=== PATIENT | female | born 1960 | race Caucasian/White ===

== ENCOUNTER 2019-07-31 18:06 | Inpatient (IN) | payer BC, OTHER ==
[~2019-07-31] VITALS: Ht 167.6 cm; Wt 107.4 kg
[2019-07-31 18:13] VITALS: BP 136/84
--- NOTE | 2019-07-31 18:54 | NUR ---
PT. ADMITTED TO [facility] FROM [facility]. SHE ARRIVED ON STRETCHER. SHE WAS BROUGHT HERE FOR PTSD AND DEPRESSION ACCORDING TO THE PATIENT. [facility] STATED SHE WAS SI. SHE STATES SHE HAS BEEN IN SEVERAL MENTAL HEALTH PLACES OVER THE YEARS. SHE SMILED AND LAUGHED THROUGHOUT THE INTERVIEW. SHE STATES SHE IS UNABLE TO STAND AND WOULD REQUIRE A W/C TO GET ARROUND. SHE STATE SHE HAS HAD 3 C-SECTIONS, HER GALLBLADDER REMOVED, AND HER 3 LITTLE FINGERS ON HER RIGHT HAND CUT OFF AND REATTACHED. SHE STATES SHE SMODES 1 PACK A DAY OF CIGARETTES. SHE ALSO STATES SHE WEIGHED 260 LBS AND IN THE LAST 3 MONTHS HAS NOT HAD A GOOD APPETITE AND HAS LOST 30 LBS. SHE CURRENTLY WEIGHS 235.6 LBS. SHE DENIES DRINKING BUT DOES DRINK PINK WINE 1-2 A WEEK. SHE DENIES A FAMILY HISTORY OF ETOH ABUSE, SUBSTANCE ABUSE OR DRUG ABUSE. SHE DENIES DRUG ABUSE ALSO. SHE STATES SHE HAS FALLEN 2 TIMES IN THE PAST WEEK BEFORE COMING IN FOR HELP.
--- NOTE | 2019-07-31 19:18 | NUR ---
Care of patient assumed at 1915. Patient sitting in day room watching TV. Pleasant and cooperative upon approach. States he told people she was hearing voices in order to be admitted, but denies AH at this time. Reports multiple sites of chronic pain, the worst being back and right hip. Denies SI/HI. Patiently waits for HS meds, and asks several times if her protperty has been inventoried yet.
[2019-08-01 09:12] VITALS: BP 136/92
--- NOTE | 2019-08-01 11:09 | NUR ---
Assess due to high nutrition screen risk for unintentional wt loss and poor appetite. Admit to [facility] with SI. Pt reports wt loss past several months of about 30 lb and was quite surprised by this. Admit to not eating, and depressed. Currently appetite is excellent, able to state food preferences and aware of ability to order alternative selections if needed. Does take lasix and spironolactone. Consider low nutrition risk as appetite has returned.
[2019-08-01 14:09] VITALS: BP 126/88
--- NOTE | 2019-08-01 14:43 | NUR ---
Ambulating t/o unit with walker without s/o distress. Hx of falls, Yellow gown in place. Alert and orientated X4. Calm and compliant. Denies SI/HI. Breath sounds clear t/o. Reg HR auscultated. Color pink with brisk capillary refill and palpable peripheral pulses. Independent with voiding. Active bowel sounds over soft, rounded abdomen. Interacting with peers without s/o distress. Compiant with meds.
[2019-08-01 20:46] VITALS: BP 120/75
[2019-08-02 07:30] VITALS: BP 115/76
--- NOTE | 2019-08-02 15:49 | EKG ---
[facility] [place] [facility] [place] [address] ELECTROCARDIOGRAM REPORT Name: DONNIE INTERIANO Room #: 528A-A ADM IN M.R.#: [id number] Admission: 07/31/19 Attend Phys: Neri Feliz DO Discharge: Date of : 60 Report #: [id number] THIS REPORT FOR: cc: DESTINY - No family physician/PCP FAM - No family physician/PCP Gil Graham MD ~ THIS REPORT FOR: //name// [facility] Test Date: 2019-08-02 Test Time: 08:10:07 Pat Name: DONNIE INTERIANO Department: Room: 52 A Gender: F Self Contained Behavior Unit Teacher: Rigo BUNN : 1960 Requested By: Neri Feliz Order Number: [id number] MD: Gil Graham Measurements Intervals Kane Rate: 90 P: 40 VT: 148 QRS: 30 QRSD: 86 T: 49 QT: 400 QTc: 490 Interpretive Statements Sinus rhythm Probable left atrial enlargement Borderline prolonged QT interval No previous ECG available for comparison Electronically Signed On 08-02-2019 15:48:50 CDT by Gil Graham [email or web address] <ELECTRONICALLY SIGNED> By: Gil Graham MD 08/02/19 1548 0810 0810 Gil Graham MD /EPI
[2019-08-02 19:38] VITALS: BP 154/96
--- NOTE | 2019-08-02 20:19 | NUR ---
Late dayshift note: Assued care 0700. C/o RAGLAND and was instructed on pressure point for H.A. relief. She looks out after the other residents-asking others to cover their mouths when coughing, encourages others to sit down with chair alarms. She displays a sad affect, denies SI/HI/AH/VH. Med changes were made and later meds for RAGLAND/pain were added. Has been out of her room a majority of the day.
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
[2019-08-03 08:36] LABS: CREATININE 1.4 mg/dL (0.6-1.0); MAGNESIUM 1.7 mg/dL (1.8-2.4)
--- NOTE | 2019-08-03 09:51 | NUR ---
Assumed care on 08/02/19 @ 19:15, noted to be up in day room sitting in a chair at a table. HRRR, Lungs CTA, ABD N. Reports BM today. Denies SI, HI, Denies anxiety, endorses depression. Compliant with medication, takes whole with water. Ambulates with walker. Independent withtoileting. Yellow fall risk. PRN Trazadone provided @ for sleep. Bed in low position. Slept 10.8 hours overnight....................................L Paula MCCOY
[2019-08-03 10:15] VITALS: BP 144/94
--- NOTE | 2019-08-03 13:02 | NUR ---
Alert and orientated X4. States she feels "shaky" this AM and thinks it may be r/t anxiety. Denies SI/HI. Denies pain at this time. AC done--95. Breath sounds clear. Irregular HR auscultated. Color pink with brisk capillary refill and palpable peripheral pulses. BP 144/94. Independent with voiding. Active bowel sounds over large, soft rounded abdomen. States she has not had BM in several days. Dr. Valente notified of above issues. Labs drawn on 2nd attempt per L AC. 12 lead EKG done, Dr. Valente aware of results. Shakiness resolved before breakfast, spent remainder of day in dayroom conversing with peers and staff. Ambulating without diff with walker, regular, steady gait.
--- NOTE | 2019-08-03 13:51 | NUR ---
JANICE reviewed documents dropped off by the police department regarding pt and her frequent calls to [employer] officers. SW team will continue to follow pt during her stay on this unit.
[2019-08-03 14:40] VITALS: BP 115/77
[2019-08-03 19:55] VITALS: BP 141/82
--- NOTE | 2019-08-04 05:15 | NUR ---
ASSESSMENT: PT REMAIN ALERT AND ORIENT TIMES THREE. DENIES PAIN, SOB AND N/V. DENIED AUDIBLE AND VISUAL HALLUCINATIONS. QUIET WHILE SITTING IN THE DAY ROOM AT THE BEGINNING OF THE SHIFT. VERY COOPERATIVE AND CALM. VSS, AFEBRILE. NO PRN'S GIVEN. WILL CONTINUE TO MONITOR.,
--- NOTE | 2019-08-04 07:47 | EKG ---
[facility] [place] [address] ELECTROCARDIOGRAM REPORT Name: DONNIE INTERIANO Room #: 528A-A ADM IN M.R.#: [id number] Admission: 07/31/19 Attend Phys: Neri Feliz DO Discharge: Date of : 60 Report #: [id number] THIS REPORT FOR: cc: DESTINY - No family physician/PCP DESTINY - No family physician/PCP Nikita Jones MD [facility] ~ THIS REPORT FOR: //name// [facility] Test Date: 2019-08-03 Test Time: 09:31:13 Pat Name: DONNIE INTERIANO Department: Room: 52 A Gender: F Lithographic Press Feeder: Krzysztof MEDEL : 1960 Requested By: Osmar Valente Order Number: [id number] MD: Nikita Jones Measurements Intervals Harris Rate: 91 P: 49 NJ: 145 QRS: 32 QRSD: 94 T: 54 QT: 417 QTc: 514 Interpretive Statements Sinus rhythm Prolonged QT interval Compared to ECG 08/02/2019 08:10:07 No significant changes Electronically Signed On 08-04-2019 7:46:57 CDT by Nikita Jones [email or web address] <ELECTRONICALLY SIGNED> By: Nikita Jones MD, [facility] 08/04/19 0746 0 Nikita Jones MD, [facility] /EPI
[2019-08-04 07:56] VITALS: BP 123/79
[2019-08-04 08:20] VITALS: BP 123/79
--- NOTE | 2019-08-04 09:00 | NUR ---
PT FINISHED BREAKFAST THIS AM. PT TOOK MEDS WHOLE, PT STATED SHE DIDN'T WANT THE LASIX MED. ASKED PT IF SHE GETS SWOLLEN LEGS, PT STATED NO. PT DENIES ANY PAIN. PT UP WITH WALKER WITH STEADY GAIT.
[2019-08-04 20:19] VITALS: BP 136/78
--- NOTE | 2019-08-05 00:15 | NUR ---
Care assumed of patient at 1915: Patient sleeping in bed at start of shift. Easily aroused. Patient calm, pleasant and cooperative. Alert and oriented x4. Denies SI/HI/AH/VH. Denies anxiety and depression. Denies pain and discomfort. Patient presents with calm affect. No s/s of delusional or paranoia behaviors observed. Declined HS snack. Took HS medication whole without difficulty. Patient up to the bathroom with walker with supervision. Gait steady, good balance. Patient has been resting quietly thus far this shift.
[2019-08-05 06:30] VITALS: BP 140/93
[2019-08-05 08:21] VITALS: BP 130/62
--- NOTE | 2019-08-05 11:12 | NUR ---
Up ambulating in unit with walker with slow, steady gait. Working on puzzle and interacting with peers. Alert and orientated X4, denies SI/HI. Breath sounds clear t/o. Reg HR auscultated. Color pink with brisk capillary refill and palpable peripheral pulses. Active bowel sounds over soft, rounded abdomen. Independent with voiding.
[2019-08-05 19:59] VITALS: BP 144/100
--- NOTE | 2019-08-05 23:26 | NUR ---
Care assumed of patient at 1915: Patient sleeping in bed at start of shift. Easily aroused. Alert and oriented x4. Initially calm, pleasant and cooperative. Denies depression and anxiety. Denies SI/HI/AH/VH. Goal directed on returning home. No delusional or paranoia behaviors observed. Patient declined HS snack. Took HS medication whole without difficulty. Patient had an episode of incontinence of bladder. Patient frustrated about needing new brief and linens. However, once they were provided, patient irritable that staff asked her to go to the bathroom so she could complete jorge care and her linens could be changed. Patient did state that staff was "not nice". However, staff x3 present, no inappropriate behaviors observed. Patient presented as helpless at times and wanted staff to do what she could do for herself. Patient is sleeping quietly in bed at this time.
[2019-08-06 06:18] VITALS: BP 138/78
[2019-08-06 09:06] VITALS: BP 134/89
[2019-08-06 10:13] LABS: HEMATOCRIT 42.7 % (37.0-47.0); MCH 29.5 pg (26.0-34.0); MCHC 32.7 g/dL (28.0-37.0); MCV 90.1 fL (80.0-100.0); RBC 4.74 mil/uL (4.20-5.00); RDW 14.6 % (10.5-14.5); WBC 9.8 thou/uL (4.0-11.0)
[2019-08-06 10:28] LABS: CALCIUM 10.5 mg/dL (8.5-10.1); CREATININE 1.4 mg/dL (0.6-1.0); MAGNESIUM 2.3 mg/dL (1.8-2.4); POTASSIUM 3.8 mmol/L (3.5-5.1)
[2019-08-06 12:35] VITALS: BP 107/82
[2019-08-06 21:01] VITALS: BP 132/87
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
--- NOTE | 2019-08-07 03:44 | NUR ---
Assumed care on 08/06/19 @ 19:15, seated in the day room at a table. cooperated with assessment and medication administration. HRRR, Lungs CTA, ABD N, reports bm today. Asked for MOM, and then refused it when provided.A&Ox4 Reports Depression and anxiety. Denies HI, SI, Hallucinations. In bed at this writing, will continue to monitor q 12 minutes for patient safety.
[2019-08-07 05:46] VITALS: BP 132/87
[2019-08-07 07:25] VITALS: BP 106/62
--- NOTE | 2019-08-07 12:11 | NUR ---
RT Progress Note- Susan continues to be present in recreational therapy groups. Her mood fluctuates from bright and cheerful to more subdued. This often correlates to the happenings in the milieu as she is easily wrapped up in other patients issues or opinions. Susan denies active hallucinations but at times can be seen pausing her participation in group to sit quietly as if she is focused on something.
[2019-08-07 13:31] VITALS: BP 132/87
--- NOTE | 2019-08-07 13:32 | NUR ---
JANICE received notice from Dr. Feliz that pt's stay is not covered as of 08/03. JANICE and Dr. Feliz talked with pt and asked if she thought she could manage her symptoms at home. Pt said she can and would like to d/c tomorrow at 10a.m. SW and pt contacted Ang VALLADARES. Pt has an appt scheduled for 08/24 @10:[address] Payne. She switched her appt to in person. She believed she had a machine adjuster leader case trim named Lynne as well. JANICE was told by [facility] rep that pt was seen by case management for hospital diversion but that is it. She was given the contact to arrange for pt to have case management of [facility] Gottlieb at [phone]. JANICE contacted Pilar and left a msg. JANICE team will continue to follow pt during her stay on this unit.
--- NOTE | 2019-08-07 18:13 | NUR ---
Assumed patient care at 0715. Vital signs stable. No suicidal and/or homicidal ideation. Mood is pleasant and cooperative. Patient has a "friendly" relationship with a male peer. There has been no noted inappropriate behavior related to this, appears to be part of a delusional aspect of her mental ilness. Patient also talked a little bit about having a " at home." Dress/hygiene is appropriate, she is compliant with all medications tests and treatments. No new medical concerns. Will report to on-coming nurse.
[2019-08-07 21:58] VITALS: BP 130/76
--- NOTE | 2019-08-07 23:29 | NUR ---
Assumed care on 08/07/19 @ 19:15, Seated in the day room at a table. Having converstion with peers. HRRR, Lungs CTA bilat, ABD N x 4Q. Reports large soft BM today. Takes meds whole with water. Ambulates with walker. Independent with toileting. Reports back pain, but says that the Gabapentin that she takes covers the pain better than her PRN Tylenol, so based on that does not wish to take prn Tylenol.
--- NOTE | 2019-08-08 08:36 | NUR ---
Followup: remains on [facility] unit. Eating 100% of meals and wt is stable. Low nutrition risk
[2019-08-08] MEDS ORDERED: LIPITOR40 MG PO (09:19)
[2019-08-08] MEDS ORDERED: PRAZOSIN HCL1 MG PO (09:19)
[2019-08-08] MEDS ORDERED: ISORDIL10 MG PO (09:19)
[2019-08-08] MEDS ORDERED: ALDACTONE50 MG PO (09:20)
[2019-08-08] MEDS ORDERED: ASPIR 8181 MG PO (09:21)
[2019-08-08] MEDS ORDERED: NEURONTIN600 MG PO (09:22)
[2019-08-08] MEDS ORDERED: RISPERDAL2 MG PO (09:23)
[2019-08-08] MEDS ORDERED: LASIX 40 MG TAB40 M2 PO (09:24)
[2019-08-08] MEDS ORDERED: PROTONIX40 M1 PO (09:24)
[2019-08-08] MEDS ORDERED: COLACE 100 MG100 MG PO (09:24)
[2019-08-08] MEDS ORDERED: MAGNESIUM400 MG PO (09:25)
[2019-08-08] MEDS ORDERED: ALLOPURINOL 10100 M2 PO (09:25)
[2019-08-08] MEDS ORDERED: PT HOME MEDICATION MISCELL (09:27)
--- NOTE | 2019-08-08 09:48 | NUR ---
Assumed patient care at 0715. Vital signs stable, LSCTA, BS x's4, abdomen soft and non-tender, skin is clean, warm, dry and intact; she deies pain. Patient uses a walker to ambulate independently. She continues to be compliant with her medications. Patient is alert and oriented x's 4, pleasant and compliant. Several positive peer interations noted. Affect is congruent with behaviors. Patient denies suicidal and/or homicidal ideations. She is to Discharge back home with her this am. Patient verbalizes an understanding of all discharge instructions. No new medical concerns.
[2019-08-08 11:35] VITALS: BP 140/87
--- NOTE | 2019-08-08 11:38 | NUR ---
JANICE D/C NOTE JANICE gave pt a SW handout with her psych appointment info on it. JANICE also faxed pt's d/c docs to [facility]. JANICE called a taxi to have a pt return home. No other needs for JANICE team to address at this time.
--- NOTE | 2019-08-10 16:07 | NUR ---
JANICE contacted pt regarding her insurance denial letter. No answer. JANICE lft msg.
--- NOTE | 2019-08-10 18:27 | D ---
[facility] [place] [address] DISCHARGE SUMMARY Name: DONNIE INTERIANO Room #: 528A-A [facility] IN M.R.#: [id number] Admission: 07/31/19 Attend Phys: Neri Feliz DO Discharge: 08/08/19 Date of : 60 Report #: [id number] THIS REPORT FOR: cc: DESTINY - No family physician/PCP FAM - No family physician/PCP Neri Feliz DO ~ THIS REPORT FOR: //name// CC: Neri DIXON physician/PCP DATE OF SERVICE: 08/08/2019 PSYCHIATRIC DISCHARGE SUMMARY ATTENDING PHYSICIAN: Neri Feliz DO. INSPECTOR RAW QUARTZ: Osmar Valente M.D., at the time of discharge. DISCHARGE DIAGNOSES: Unspecified psychosis, much improved; major depressive disorder, recurrent, severe by history; generalized anxiety disorder, posttraumatic stress disorder was her diagnosis from [facility]. MEDICAL COMORBIDITIES: Include obesity, BMI of 38.2. ADDITIONAL PROBLEMS: Include hypertension, muscle spasms, hyperlipidemia and chronic kidney disease. DISCHARGE PLAN: The patient is discharging to her home. ACTIVITY LEVEL: As tolerated. SOCIAL HISTORY: No alcohol, no illicit drugs. The patient has a psychiatric followup with her community mental health center provider at [facility]; already reviewed the details; according to schedule on 08/24 at 10:[address] Payne. She also has case management with Pilar Gottlieb at [phone]. The patient is encouraged to see her PCP within 1 month. LABORATORY DATA: This admission, on the CBC; H and H 14.0 and 42.7, white count 9.8, platelet count 264. Chemistries this admission; sodium 139, potassium 3.8, chloride 102, bicarbonate 27, anion gap 10, BUN 25, creatinine 1.4, estimated GFR 38, calcium 10.5, magnesium 2.3. DISCHARGE MEDICATIONS: Atorvastatin 40 mg p.o. daily, isosorbide dinitrate [address] [id number] DISCHARGE SUMMARY Name: DONNIE INTERIANO Room #: 52-A [facility] IN [facility].#: [id number] Admission: 07/31/19 Attend Phys: Neri Feliz DO Discharge: 08/08/19 Date of : 60 Report #: [id number] mg oral 3 times a day, 30-day prescription given for each of these; prazosin 5 mg p.o. at bedtime for PTSD, spironolactone 50 mg p.o. daily for potassium replacement and hypertension, aspirin 81 mg oral daily for heart protection, gabapentin 600 mg p.o. 3 times a day for mood stabilization and pain, risperidone 2 mg p.o. b.i.d. for psychosis, Lasix 40 mg p.o. daily for hypertension and fluid overload; docusate 100 mg p.o. b.i.d., hold if diarrhea, for bowel motility; pantoprazole 40 mg p.o. daily for GERD, allopurinol 100 mg p.o. daily, magnesium oxide 400 mg p.o. daily for replacement. REASON FOR ADMISSION: Back on 07/30 or so, a 59-year-old black female who was transferred from [facility]. She had actually been seen the day before at [facility] with Dr. Fonseca and Dr. Nicolette Fisher. She reported auditory and visual hallucinations and paranoia. For reasons unknown to me, it was noted but not addressed in her appointment at [place], and apparently she went to the ER reporting these concerns, believing someone was in her home. She acknowledged she had been drinking alcohol, but her blood alcohol level was negative. She also reported some intermittent marijuana smoking. HOSPITAL COURSE: The patient was admitted to Geriatric Psychiatry Unit. Risperidone 0.5 mg twice daily was initiated, it was later titrated to 2 mg twice a day; essentially snuffed out her psychosis. The patient has probably been under-utilizing resources. She has a sister who is supportive. Her overall state improved. No psychosis. [place] to be stable for step down. DISCHARGE PHYSICAL EXAMINATION: VITAL SIGNS: On the day of discharge, temperature 36.4, pulse 102, respirations 13, BP 140/87, O2 sat 97%. MUSCULOSKELETAL: Slow gait. Normal station. MENTAL STATUS EXAMINATION: This is a well-developed, obese, black female, appearing stated age. Attention fair. Concentration fair. Speech has normal rate, volume and tone. Thought process linear and goal-directed. Thought content focused on discharge. No psychomotor agitation. No psychomotor retardation. The patient denied suicidal or homicidal ideations. No auditory, visual or tactile hallucination. Denied hopelessness, helplessness. Memory not formally tested. Insight fair to limited. Judgment fair. Fund of knowledge below average. PROGNOSIS: For this patient is fair to guarded, and depends on her engagement [facility] [address] [place] [address] DISCHARGE SUMMARY Name: DONNIE INTERIANO Room #: 528A-A [facility] IN [place].#: [id number] Admission: 07/31/19 Attend Phys: Neri Feliz DO Discharge: 08/08/19 Date of : 60 Report #: [id number] with [facility] resources and medication compliance and avoidance of problematic or recreational substances. <ELECTRONICALLY SIGNED> By: Neri Feliz DO 08/10/19 1827 [id number] Neri Feliz DO /nt
== END 2019-08-08 12:58 | disposition home or self-care (01) | DRG 885 ==
LOC: SBH 18:06
PROVIDERS: Internal Medicine; ADMIT Psychiatry & Neurology Psychiatry; ATTEND Psychiatry & Neurology Psychiatry
DX: F33.3 Major depressive disorder, recurrent, severe with psychotic symptoms (principal); I13.0 Hypertensive heart and chronic kidney disease with heart failure and stage 1 through stage 4 chronic kidney disease, or unspecified chronic kidney disease; I50.32 Chronic diastolic (congestive) heart failure; F41.1 Generalized anxiety disorder; F43.10 Post-traumatic stress disorder, unspecified; G43.709 Chronic migraine without aura, not intractable, without status migrainosus; E78.5 Hyperlipidemia, unspecified; M06.9 Rheumatoid arthritis, unspecified; M19.90 Unspecified osteoarthritis, unspecified site; G89.29 Other chronic pain; M54.9 Dorsalgia, unspecified; M54.2 Cervicalgia; M79.7 Fibromyalgia; F17.210 Nicotine dependence, cigarettes, uncomplicated; F12.90 Cannabis use, unspecified, uncomplicated; M62.838 Other muscle spasm; N18.3 Chronic kidney disease, stage 3 (moderate); E66.01 Morbid (severe) obesity due to excess calories; J44.9 Chronic obstructive pulmonary disease, unspecified; Z68.38 Body mass index [BMI] 38.0-38.9, adult; Z88.8 Allergy status to other drugs, medicaments and biological substances; I25.2 Old myocardial infarction
CPT/HCPCS: 10880